=== PATIENT | male | born 1985 ===

== ENCOUNTER 2017-06-13 07:37 | Emergency (ER) | payer OTHER ==
[2017-06-13 07:46] VITALS: PULSE 80; O2SAT 98
[2017-06-13] MEDS ORDERED: Albuterol 0.083% Inhal Sol (2.5 mg/3 mL) UD INH ONE ×2 (08:02→09:29)
--- NOTE | 2017-06-13 08:02 | ED PDOC ---
Arrival/HPI - General Chief Complaint: Cough, Cold, Congestion Time Seen by Provider: 06/13/17 07:48 Historian: Patient - History of Present Illness Narrative History of Present Illness (Text): 06/13/17 08:01 A 31 year old male, whose past medical history includes asthma and hypertension , presents to the emergency department complaining of shortness of breath. Patient reports productive cough, runny nose, sinus congestion and subjective fever for the past three days and currently has shortness of breath. Reports to taking Mucinex. Notes some wheezing last night. Patient also notes feels similar to previous symptoms. Patient denies any diarrhea, abdominal pain or any other complaints at this time. Denies any drug use. Reports to drinking occasionally. Symptom Onset: Sudden Symptom Course: Unchanged Activities at Onset: Rest Context: Home Past Medical History - Provider Review Nursing Documentation Reviewed: Yes - Infectious Disease Hx of Infectious Diseases: None - Cardiac Hx Hypertension: Yes - Pulmonary Hx Asthma: Yes - Psychiatric Hx Substance Use: No Family/Social History - Physician Review Nursing Documentation Reviewed: Yes Family/Social History: No Known Family HX Smoking Status: Never Smoked Hx Alcohol Use: Yes Frequency of alcohol use: Socially Hx Substance Use: No Allergies/Home Meds Allergies/Adverse Reactions: Allergies No Known Allergies Allergy (Verified 06/13/17 07:46) Home Medications: Home Meds Medication Instructions Recorded Confirmed amLODIPine [Norvasc] 5 mg PO DAILY 06/13/17 06/13/17 hydroCHLOROthiazide [Microzide] 12.5 mg PO DAILY 06/13/17 06/13/17 Review of Systems - Physician Review All systems were reviewed & negative as marked: Yes - Review of Systems Constitutional: Fevers (subjective) ENT: Sinus Congestion Respiratory: SOB, Cough Gastrointestinal: absent: Abdominal Pain, Diarrhea Physical Exam Vital Signs Reviewed: Yes Vital Signs Temp Pulse Resp BP Pulse Ox 06/13/17 09:38 98.6 F 80 16 129/80 98 06/13/17 07:44 97.9 F 80 17 157/92 H 98 Temperature: Afebrile Blood Pressure: Hypertensive Pulse: Regular Respiratory Rate: Normal Appearance: Positive for: Well-Appearing, Non-Toxic, Comfortable Pain Distress: None Mental Status: Positive for: Alert and Oriented X 3 - Systems Exam Head: Present: Atraumatic, Normocephalic Pupils: Present: PERRL Extroacular Muscles: Present: EOMI Conjunctiva: Present: Normal Mouth: Present: Moist Mucous Membranes Neck: Present: Normal Range of Motion Respiratory/Chest: Present: Rhonchi. No: Respiratory Distress, Accessory Muscle Use Cardiovascular: Present: Regular Rate and Rhythm, Normal S1, S2. No: Murmurs Abdomen: Present: Normal Bowel Sounds. No: Tenderness, Distention, Peritoneal Signs Back: Present: Normal Inspection Upper Extremity: Present: Normal Inspection. No: Cyanosis, Edema Lower Extremity: Present: Normal Inspection. No: Edema Neurological: Present: GCS=15, CN II-XII Intact, Speech Normal Skin: Present: Warm, Dry, Normal Color. No: Rashes Psychiatric: Present: Alert, Oriented x 3, Normal Insight, Normal Concentration Medical Decision Making ED Course and Treatment: 06/13/17 07:58 Impression: A 31 year old male with shortness of breath and cough. Differential Diagnosis included but are not limited to: asthma exacerbation r/ o pneumonia Plan: -- chest xray -- Albuterol -- Reassess and disposition Progress Notes: 06/13/17 09:15 chest xray: Creator : Arian Doran MD IMPRESSION: No active disease. 06/13/17 09:29 Patient given another Albuterol. 06/13/17 10:01 Patient was given one dose of prednisione. EKG: Ordered, reviewed, and independently interpreted the EKG. Rate : 79 BPM Rhythm : NSR Interpretation : Normal intervals, normal axis. Comparison : No previous EKG for comparison. 06/13/17 10:20 Patient is requesting nasal spray. On re-evaluation, patient feels better and is in no acute distress. Patient in agreement with plan to be discharged home. Patient is stable for discharge. Patient was instructed to follow up with physician/clinic in 1-2 days or return if symptoms worsen or new concerning symptoms arise. - RAD Interpretation Radiology Orders: 06/13/17 08:02 CHEST TWO VIEWS (PA/LAT) [RAD] Stat - Medication Orders Current Medication Orders: Discontinued Medications Albuterol Sulfate (Albuterol 0.083% Inhal Rosalina (2.5 Mg/3 Ml) Ud) 2.5 mg INH ONCE ONE Stop: 06/13/17 08:03 Last Admin: 06/13/17 08:12 Dose: 2.5 mg Albuterol Sulfate (Albuterol 0.083% Inhal Rosalina (2.5 Mg/3 Ml) Ud) 2.5 mg INH ONCE ONE Stop: 06/13/17 09:30 Last Admin: 06/13/17 10:26 Dose: 2.5 mg Prednisone (Prednisone Tab) 40 mg PO STAT STA Stop: 06/13/17 10:02 Last Admin: 06/13/17 10:26 Dose: 40 mg - Scribe Statement The provider has reviewed the documentation as recorded by the Chris Krishna Provider Bryanibe Attestation: All medical record entries made by the Chris were at my direction and personally dictated by me. I have reviewed the chart and agree that the record accurately reflects my personal performance of the history, physical exam, medical decision making, and the department course for this patient. I have also personally directed, reviewed, and agree with the discharge instructions and disposition. Disposition/Present on Arrival - Present on Arrival Any Indicators Present on Arrival: No History of DVT/PE: No History of Uncontrolled Diabetes: No Urinary Catheter: No History of Decub. Ulcer: No History Surgical Site Infection Following: None - Disposition Have Diagnosis and Disposition been Completed?: Yes Diagnosis: Asthma Disposition: HOME/ ROUTINE Disposition Time: 09:00 Patient Plan: Discharge Condition: IMPROVED Discharge Instructions (ExitCare): Asthma (ED) Additional Instructions: follow up with your primary doctor in 1-2 days return to the ED with any worsening or concerning symptoms Prescriptions: Albuterol HFA [Ventolin HFA 90 mcg/actuation (8 g)] 1 - 2 puff IH Q4H PRN #1 bottle PRN Reason: Wheezing Mometasone Furoate [Nasonex] 2 spr NS DAILY PRN #1 spray.pump PRN Reason: Nasal Congestion Forms: [employer] (Lao)
--- NOTE | 2017-06-13 09:12 | RAD ---
HISTORY: cough COMPARISON: No prior. TECHNIQUE: Chest PA and lateral FINDINGS: LUNGS: No active pulmonary disease. PLEURA: No significant pleural effusion identified. No pneumothorax apparent. CARDIOVASCULAR: Normal. OSSEOUS STRUCTURES: No significant abnormalities. VISUALIZED UPPER ABDOMEN: Normal. OTHER FINDINGS: None. IMPRESSION: No active disease.
[2017-06-13 10:47] VITALS: BP 129/80; RESP 16; TEMP 98.6
--- NOTE | 2017-06-13 13:31 | CARD ---
APPROVED REPORT EKG Measurement Heart [id number] <Conclusion> Normal sinus rhythm Normal ECG
== END 2017-06-13 10:48 | disposition home or self-care (01) ==
LOC: ED 07:37 → MERGE 07:37 → ED 10:48
DX: J45.909 Unspecified asthma, uncomplicated (principal); I10 Essential (primary) hypertension